=== PATIENT | female | born 1985 | race Caucasian/White ===

== ENCOUNTER 2022-07-21 07:26 | Inpatient (IN) | payer BC, SELFPAY ==
[2022-07-21] VITALS (39 sets, daily range): BP systolic 98–149; BP diastolic 55–106; PULSE 67–100; RESP 18; TEMP 36.5; O2SAT 86–100; BMI 34.8
[2022-07-21 05:37] LABS: Amphetamine Screen Urine Negative (Negative); Barbiturate Screen Urine Negative (Negative); Benzodiazepines Screen Urine Negative (Negative); Cannabinoid Screen Urine Negative (Negative); Cocaine Screen Urine Negative (Negative); Methadone Screen Urine Negative (Negative); Methamphetamines Screen Urine Negative (Negative); Opiate Screen Urine Negative (Negative); Oxycodone Screen Urine Negative (Negative); Phencyclidine Screen Urine Negative (Negative); Tricyclic Antidepressant Urine Negative (Negative)
[2022-07-21 06:35] LABS: Hematocrit 39.1 % (33.0-51.0); Hemoglobin* 13.5 gm/dL (12.0-16.0); Mean Corpuscular HGB Conc 35 gm/dL (32-36); Mean Corpuscular Hemoglobin 30 pg (26-34); Mean Corpuscular Volume 87 fL (80-100); Platelet Count* 257 K/uL (140-440); Red Blood Count 4.49 m/uL (4.00-5.20); White Blood Count* 14.23 K/uL (4.50-11.00)
[2022-07-21] MEDS: LACTATED RINGERS 1000 ML 1,000 ML IV ×2 (06:35→07:55)
[2022-07-21 06:42] LABS: Slide Review Reflex No
[2022-07-21 06:46] LABS: INR 0.87 (0.91-1.10); Prothrombin Time 12.3 Seconds
[2022-07-21 06:47] LABS: Fibrinogen* 537 mg/dL (200-450)
[2022-07-21 07:01] LABS: Aspartate Amino Transferase* 20 U/L (12-35); Creatinine* 0.5 mg/dL (0.5-1.5); Estimated Glomerular Filt Rate 125 ml/min
[2022-07-21 07:02] LABS: Magnesium* 1.8 mg/dL (1.5-2.6)
[2022-07-21 07:02] LABS: Alanine Aminotransferase* 17 U/L (4-35); Blood Urea Nitrogen* 9 mg/dL (5-24)
--- NOTE | 2022-07-21 07:31 | P.OBHP_ITS ---
OB - H&P: HPI Labor/Induction History of Present Illness Date Seen: 07/21/22 Chief Complaint: The patient is a 37 year old 5 para 211 at 36+6 weeks gestation by LMP and confirmed with first trimester US, who presents with painful regular contractions. is complicated by AMA. She has history of delivery with first baby. serial CL ultrasounds reassuring, so did not go on progesterone. Baby also known to have bilateral club feet. Chief complaint: Maternity : 5 Para: 3 Narrative: Peña Wick is a 37 year old at 36.6 weeks by LMP confirmed with first trimester US here with painful regular contractions. Contractions were mild starting last night at 9 pm, but overnight became more intense and frequent which prompted her to come in for evaluation. She quickly dilated from 3.5 to 5 cm while being observed and contractions are now Q2 minutes. She reports no LOF. complicated by AMA and history of delivery with first child, CL ultrasounds reassuring and therefore did not take progesterone. Infant is known to have bilateral club feet for which she has consulted with perinatology and peds ortho. History of Present Dating criteria: based on LMP care: good care Abnormal ultrasound findings: Bilteral club feet, appears to be an isolated finding Medical complications: none Labs Blood type: A (+) positive Rubella: immune RPR/VDLR: nonreactive GBS status: negative HBsAG: negative Review of Systems Status of ROS: Reports: 6 or more systems reviewed and unremarkable except as noted in History and below Meds Home Medications and Allergies Home Medications Medication Instructions Recorded Confirmed Type No Known Home Medications 07/21/22 07/21/22 History Allergies Allergy/AdvReac Type Severity Reaction Status Date / Time No Known Allergies Allergy Verified 07/21/22 06:49 OB - H&P: Exam Physical Exam: Vital signs: Temp Pulse Resp BP Pulse Ox 97.7 F 77 18 137/95 H 99 07/21/22 04:24 07/21/22 07:30 07/21/22 04:24 07/21/22 07:30 07/21/22 07:30 Constitutional: Constitutional: no acute distress Comments: uncomfortable with contractions Routine HEENT Exam: Head: Present atraumatic Eye: Present EOMI and PERRL ENT: Present mucous membranes moist Routine Neck Exam: Neck: Present full ROM Routine Respiratory Exam: Respiratory: Present CTA bilaterally Routine Cardiovascular Exam: Cardiovascular: RRR Detailed Labor and Delivery Exam: Patient Gravid: Yes Dilation (cm): 5 Effacement (%): 80 Cervix position: mid Consistency: soft Contraction frequency (min): 2 Contraction intensity: Strong/Firm Fetus (Single): Station: -2 Amniotic Membrane Status: intact Heart Rate Baseline: 150 Monitor Accelerations: Present Monitor Decelerations: None Custodial Variability: Moderate (6-25) Routine Back/Spine/Pelvis Exam: Back/Spine: full ROM Routine Skin Exam: Present intact Routine Neurological Exam: Present alert, oriented X3 and CN II-XII intact Routine Psychiatric Exam: Present normal affect OB - Results Labs Labs: Short CBC 07/21/22 Range/Units 06:00 WBC 14.23 H (4.50-11.00) K/uL Hgb 13.5 (12.0-16.0) gm/dL Hct 39.1 (33.0-51.0) % Plt Count 257 (140-440) K/uL BMP 07/21/22 06:00 BUN 9 Creatinine 0.5 Liver Function 07/21/22 Range/Units 06:00 AST 20 (12-35) U/L ALT 17 (4-35) U/L OB - Problem Based A/P Additional Plan (1) Term : Status: Acute Plan Patient requesting epidural for labor analgesia. WIll plan on AROM after she is comfortable. Anticipate . Delivery/Labor/Induction Plan Plan: expectant management
[2022-07-21] MEDS: ROPIVACAINE 0.2% 100 ml 100 ML 12 MG EPIDURAL (07:54)
[2022-07-21] MEDS: LIDOCAINE 2% (PF) 5 ML VIAL EPIDURAL (07:54)
[2022-07-21 07:55] LABS: SARS PCR* Negative SARS-CoV-2 (Negative)
--- NOTE | 2022-07-21 07:58 | P.ANBPRC_ITS ---
[facility] [place] Social History Smoking Status: Never smoker Meds Home Medications and Allergies Home Medications Medication Instructions Recorded Confirmed Type No Known Home Medications 07/21/22 07/21/22 History Allergies Allergy/AdvReac Type Severity Reaction Status Date / Time No Known Allergies Allergy Verified 07/21/22 06:49 Results Labs Labs: Laboratory Results - last 24 hr 07/21/22 07/21/22 07/21/22 05:05 06:00 06:00 WBC 14.23 H RBC 4.49 Hgb 13.5 Hct 39.1 MCV 87 MCH 30 MCHC 35 Plt Count 257 INR 0.87 L Fibrinogen 537 H BUN Creatinine Estimated GFR Magnesium AST ALT Urine Opiates Screen Negative Ur Oxycodone Screen Negative Urine Methadone Screen Negative Ur Propoxyphene Screen Negative Ur Barbiturates Screen Negative U Tricyclic Antidepress Negative Ur Phencyclidine Scrn Negative Ur Amphetamines Screen Negative U Methamphetamines Scrn Negative U Benzodiazepines Scrn Negative Urine Cocaine Screen Negative U Marijuana (THC) Screen Negative SARS-CoV-2 (PCR) 07/21/22 07/21/22 07/21/22 06:00 06:30 06:58 WBC RBC Hgb Hct MCV MCH MCHC Plt Count INR Fibrinogen BUN 9 Creatinine 0.5 Estimated GFR 125 Magnesium 1.8 AST 20 ALT 17 Urine Opiates Screen Ur Oxycodone Screen Urine Methadone Screen Ur Propoxyphene Screen Ur Barbiturates Screen U Tricyclic Antidepress Ur Phencyclidine Scrn Ur Amphetamines Screen U Methamphetamines Scrn U Benzodiazepines Scrn Urine Cocaine Screen U Marijuana (THC) Screen SARS-CoV-2 (PCR) Negative SARS-CoV-2 Vital Signs Vital Signs: Last Vital Signs Temp 97.7 F 07/21/22 04:24 Pulse 84 07/21/22 07:54 Resp 18 07/21/22 04:24 BP 138/85 07/21/22 07:54 Pulse Ox 100 07/21/22 07:45 Weight: 92.306 kg Anesthesia Procedures Epidural Insertion Patient Location: OB Start Time: 07:25 Stop Time: 08:00 Start Date: 07/21/22 Stop Date: 07/21/22 Reason for Block: procedure for pain Patient Position: sitting Performed By: Missael Benavidez Preanesthetic Checklist: IV checked, site marked, risks and benefits discussed, monitors and equipment checked, pre-op evaluation, timeout performed and anesthesia consent Prep: chlorhexidine gluconate Monitoring: blood pressure monitoring, continuous pulse oximetry and heart rate Approach: midline Vertebral Space: lumbar (1-5) Epidural Technique: SARAI saline Needle Type: Tuohy needle Injection Technique: continuous catheter Needle gauge: 17 Needle Length (cm): 10 cm Needle Insertion Depth (cm): 6 Catheter Gauge: 20 Catheter Type: multi-orifice Catheter at skin depth (cm): 11 Test Dose Result: negative
[2022-07-21] MEDS: OXYTOCIN 30 unit/500 ML in NS 30 UNIT/500 ML BAG 300 UNIT IVPB (08:37)
--- NOTE | 2022-07-21 09:48 | P.OBPRC_ITS ---
Procedure Procedure Done: Global Events: AMA Intrapartal Events: Distress and Excessive Bleeding (After AROM, suspect partial abruption) Delivery augmentation: rupture of membranes Delivery monitor: external FHT and internal FHT Route of delivery: vacuum extraction Indication for instrumentation: nonreassuring FHR tracing Episiotomy description: None Laceration description: None Estimated blood loss (mL): 110 Anesthesia type: Epidural Narrative: The patient is a 37 year-old admitted on 07/21/2022 at 36.6 Weeks gestation for active labor.? Cervical exam on admission was 3 cm/80 % effaced/-2 station with membranes intact in vertex presentation.? Contractions were every 2 minutes.? heart rate demonstrated baseline 150 bpm with moderate variability, + accelerations, - decelerations; a category 1 tracing.?She received an epidural for labor analgesia at 0745. AROM occurred at 0808 with clear fluid, she was 8 cm at geraldine time. However, she then had a moderate to heavy amount of bright red bleeding and clots. At this time, infant began to have persistent decelerations to 70-100. Cervix was a rim and then rapidly dilated to complete. 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 Peds provider was present for delivery. Mom was pushing effectively, but because of persistent FHTs in the 70s, a vacuum was placed during the last contraction prior to delivery, mom pushed twice with the vacuum and delivered. ? Labor Analgesia:? Epidural ? Pitocin:? after delivery of ? Labor onset:? 0400 ? Complete:? 0827 ? Pushing:? 0827 ? heart tones during second stage were category 2. ? At 0838 a viable male infant delivered in vertex OA presentation over intact perineum via spontaneous vaginal delivery.? Infant was placed on maternal abdomen.? Cord was clamped and cut after a 30-60 second delay.? Nose and mouth were bulb suctioned. At that time, was noted to have poor respiratory effort and was brought to the warmer for resuscitation. ? Infant weight 2995 g.? 6 at 1 minute and 7 at 5 minutes.? Shoulder dystocia: no.? Nuchal cord: no. ? Placenta delivered spontaneously and complete at 0847 with a 3 vessel cord. ? Mother and were stable after delivery. ? Lacerations:? n/a. ? Blood loss: 110 mL. Blood loss measurement type: QBL ? Sponge and needles counts are correct. [place] Infant Gender: Male presentation: vertex Placental Delivery Description: Spontaneous Cord Description: 3 Vessels total score - 1 minute: 6 total score - 5 minute: 7 total score - 10 minute: 7 [place] Infant A Gender: Male
[2022-07-21] MEDS: IBUPROFEN 600 MG TABLET PO (11:34)
--- NOTE | 2022-07-21 11:48 | P.DS_ITS ---
DS: Providers Provider Date Seen: 07/21/22 Date of admission: 07/21/22 07:26 Primary care physician: Luzma Dominique MD Admitting Clinician: Luzma Dominique MD Consults: 07/21/22 04:53 Consult to Inbound Customer Service Representative [CONS] Routine Comment: Reason for Consult:: Substance Abuse Screening Attending Physician on discharge: Luzma Dominique MD Date of Discharge: 07/21/22 DS: Diagnosis Discharge Diagnosis (1) Vaginal delivery: Status: Acute Exam Const: Vital Signs, click to edit/add: Vital Signs - 24 hr 07/21/22 04:24 07/21/22 04:22 07/21/22 05:08 Temperature 97.7 F Pulse Rate 77 88 Respiratory Rate 18 Blood Pressure 141/88 H 137/91 H Pulse Oximetry 07/21/22 05:28 07/21/22 07:25 07/21/22 07:28 Temperature Pulse Rate 81 84 Respiratory Rate Blood Pressure 140/92 H 139/93 H Pulse Oximetry 100 07/21/22 07:30 07/21/22 07:32 07/21/22 07:34 Temperature Pulse Rate 77 68 77 Respiratory Rate Blood Pressure 137/95 H 139/91 H 138/95 H Pulse Oximetry 99 07/21/22 07:35 07/21/22 07:38 07/21/22 07:40 Temperature Pulse Rate 81 83 Respiratory Rate Blood Pressure 136/96 H 149/106 H Pulse Oximetry 99 100 07/21/22 07:42 07/21/22 07:44 07/21/22 07:45 Temperature Pulse Rate 75 76 Respiratory Rate Blood Pressure 135/88 132/87 Pulse Oximetry 100 07/21/22 07:46 07/21/22 07:48 07/21/22 07:50 Temperature Pulse Rate 75 75 82 Respiratory Rate Blood Pressure 135/88 144/98 H 128/91 H Pulse Oximetry 07/21/22 07:52 07/21/22 07:54 07/21/22 07:58 Temperature Pulse Rate 80 84 89 Respiratory Rate Blood Pressure 134/86 138/85 136/84 Pulse Oximetry 07/21/22 08:01 07/21/22 08:06 07/21/22 08:12 Temperature Pulse Rate 86 100 67 Respiratory Rate Blood Pressure 134/88 133/72 98/57 L Pulse Oximetry 07/21/22 08:16 07/21/22 08:20 07/21/22 08:21 Temperature Pulse Rate 82 82 Respiratory Rate Blood Pressure 116/72 114/60 Pulse Oximetry 100 07/21/22 08:25 07/21/22 08:26 07/21/22 08:30 Temperature Pulse Rate Respiratory Rate Blood Pressure Pulse Oximetry 100 91 86 L 07/21/22 08:49 07/21/22 09:04 07/21/22 09:19 Temperature Pulse Rate 76 79 73 Respiratory Rate Blood Pressure 107/55 L 110/61 118/76 Pulse Oximetry 07/21/22 09:34 07/21/22 09:49 07/21/22 10:04 Temperature Pulse Rate 76 75 85 Respiratory Rate Blood Pressure 119/78 119/77 124/81 Pulse Oximetry 07/21/22 10:13 07/21/22 10:40 07/21/22 10:50 Temperature Pulse Rate 80 87 78 Respiratory Rate Blood Pressure 134/87 135/92 H 128/86 Pulse Oximetry Common normals: no apparent distress : Other: Uterus firm 2 cm below umbilicus. Extremity: Common normals: normal to inspection and no pedal edema OB - DS: Summary Hospital Course Hospital Course: The patient is a 37 year old G 5 P 3114 at 36.6 weeks gestation that was admitted to the Center on 07/21/22 for actve labor. She had a vaginal delivery complicated by suspected partial abruption and nonreassuring FHTs. She delivered a viable male infant via vacuum assisted delivery for nonreassuring FHTs. She is planning on breast feeding. the patient has done well. She will be discharged early due to being transferred to NICU Peripartum Data delivery method: Vaginal Laceration description: None Episiotomy description: None complications: none [place] Gender: Male Infant Discharge Plan: transfer NICU [place] A Infant Gender: Male Status at Discharge Functional status at discharge: independent ambulation Overall status at discharge: patient is progressing back to baseline Time Spent with Patient Time attestation: Total time spent providing and/or coordinating discharge services: Time spent: Less than 30 minutes Discharge Plan Discharge Disposition: Home, Self-Care Date of Admission: 07/21/22 07:26 Primary Care Provider: Luzma Dominique Condition: Stable Anticipated Discharge Date/Time: 07/21/22 11:53 Discharge Medications: No Action No Known Home Medications Discharge Orders: Discharge Order (Routine); Ordered 07/21/22 Ordered By: Luzma Dominique Patient Education: OB Vaginal/Breast Feeding Activity Level: No Restrictions Activity Detail: Pelvic rest (no intercourse or tampons) for 6 weeks Off work for 6 weeks Discharge Diet: Regular Follow Up Appointments: Luzma Dominique MD [Primary Care Provider] - Forms: [facility] Inst[facility] Discharge Comments: ok to discharge with baby if vitals stable and able to ambul ate independently
--- OUTSIDE RECORDS SUMMARY | 2023-11-30 08:59 | XMS_ITS | Clinical Summary ---
Author Organization [facility] Address [address] [place] [address] Care Team Providers Care Circle Shear Operator Name Role Phone Elsewhere, Pcp Primary Care Provider Unavailabl e Source Comments Patient records contain information from all sites at [facility]. For routine questions regarding patient records, call [phone] during business hours, M-F 8:00 AM - 5:00 PM Central Time. Record requests for emergency care only can be directed to [phone] at any time.[facility] Allergies No known active allergies Medications Medication [...] your living situation today? I have a [facility] place to live 03/09/2023 Sex and Gender [...] history exists Medical Devices Implanted Type Area Machine Heel Seat Laster Device Identifier Shelf Expiration Date Model / Serial / Lot Stnt Uret Inl 7fx26 - [id number] Implanted:Qty : 1 on 02/20/2023 by Nancy Clemons M.D. at [facility] Ureteral Stent Left: Ureter C.R.Bard [id number] 05/26/2026 [id number] / / [id number] Stnt Uret Inl 7fx26 - [id number] Implanted:Qty : 1 on 03/20/2023 by Basia Jerome M.D. at [facility] Ureteral Stent Left: Ureter C.R.Bard [id number] 05/26/2026 [id number] / / [id number] Explanted Type Area Machine Heel Seat Laster Device Identifier Shelf Expiration Date Model / Serial / Lot Stnt Uret Inl 7fx26 - [id number] Implanted:Qty : 1 on 02/06/2023 by Tawanda Delaney M.D. at [facility] Explanted:Qty : 1 on 02/20/2023 by Marylou Santana M.D. at [facility] Ureteral Stent Left: Ureter C.R.Bard [id number] 05/26/2026 [id number] / / [id number] Stnt Uret Inl 7fx26 - [id number] Explanted:Qty : 1 on 02/20/2023 by Nancy Clemons M.D. at [facility] Ureteral Stent Left: Ureter C.R.Bard [id number] 05/26/2026 [id number] / / [id number] Stnt Uret Inl 7fx28 - [id number] Implanted:Qty : 1 on 01/05/2023 by Juanita Mckeon M.D. at [facility] Explanted:Qty : 1 on 03/20/[address] [facility] Ureteral Stent C.R.Bard [id number] 05/26/2026 [id number] / / [id number] Care Teams Circle Shear Operator Relationship Specialty Start Date End Date Elsewhere, Pcp PCP - General 12/01/21
--- OUTSIDE RECORDS SUMMARY | 2023-11-30 08:59 | XMS_ITS | Referral Summary ---
Author Organization [facility] Address [address] [place] [address] Care Team Providers Care Sewer System Supervisor Name Role Phone Elsewhere, Pcp Primary Care Provider Unavailabl e Source Comments Patient records contain information from all sites at [facility]. For routine questions regarding patient records, call [phone] during business hours, M-F 8:00 AM - 5:00 PM Central Time. Record requests for emergency care only can be directed to [phone] at any time.[facility] Allergies No known active allergies Medications [...] your living situation today? I have a [facility] place to live 03/09/2023 Sex and Gender [...] on file Medical Devices Implanted Type Area Analytics Analyst Device Identifier Shelf Expiration Date Model / Serial / Lot Stnt Uret Inl 7fx26 - [id number] Implanted:Qty : 1 on 02/20/2023 by Nancy Clemons M.D. at [facility] Ureteral Stent Left: Ureter C.R.Bard [id number] 05/26/2026 [id number] / / [id number] Stnt Uret Inl 7fx26 - [id number] Implanted:Qty : 1 on 03/20/2023 by Basia Jerome M.D. at [facility] Ureteral Stent Left: Ureter C.R.Bard [id number] 05/26/2026 [id number] / / [id number] Explanted Type Area Analytics Analyst Device Identifier Shelf Expiration Date Model / Serial / Lot Stnt Uret Inl 7fx26 - [id number] Implanted:Qty : 1 on 02/06/2023 by Tawanda Delaney M.D. at [facility] Explanted:Qty : 1 on 02/20/2023 by Marylou Santana M.D. at [facility] Ureteral Stent Left: Ureter C.R.Bard [id number] 05/26/2026 [id number] / / [id number] Stnt Uret Inl 7fx26 - [id number] Explanted:Qty : 1 on 02/20/2023 by Nancy Clemons M.D. at [facility] Ureteral Stent Left: Ureter C.R.Bard [id number] 05/26/2026 [id number] / / [id number] Stnt Uret Inl 7fx28 - [id number] Implanted:Qty : 1 on 01/05/2023 by Juanita Mckeon M.D. at [facility] Explanted:Qty : 1 on 03/20/2023 at [facility] Ureteral Stent C.R.Bard [id number] 05/26/2026 [id number] / / [id number] Care Teams Sewer System Supervisor Relationship Specialty Start Date End Date Elsewhere, Pcp PCP - General 12/01/21
--- OUTSIDE RECORDS SUMMARY | 2023-11-30 08:59 | XMS_ITS ---
Author Organization [facility] Address [address] [place] [address] Care Team Providers Care Supervisor Publications Name Role Phone Unavailable Unavailable Unavailable Surgery Details Not on file Complications Check Surgery Details section. Procedure Estimated Blood Loss Check Surgery Details section. Procedure Findings Check Surgery Details section. Procedure Specimens Taken Check Surgery Details section.
== END 2022-07-21 13:25 | disposition home or self-care (01) | DRG 560 ==
LOC: OB OUT 07:26 → OB 11:53
PROVIDERS: Admitting Provider Family Medicine; PCP Family Medicine; Visit Provider Family Medicine
DX: O76 Abnormality in fetal heart rate and rhythm complicating labor and delivery (principal); Z3A.36 36 weeks gestation of pregnancy; Z37.0 Single live birth
CPT/HCPCS: 01967; 36415; 80306; 82565; 83735; 84450; 84460; 84520; 85027; 85384; 85610; 87635; 88307; 99213; G0463; A9270; J2795; J7120

== ENCOUNTER 2023-11-13 05:59 | Emergency (ER) | payer BC, SELFPAY ==
[2023-11-13 06:06] VITALS: BP 140/101; PULSE 97; RESP 16; TEMP 36.6; O2SAT 96; BMI 27.5
[2023-11-13 06:18] LABS: Appearance Urine Cloudy (Clear); Bilirubin Urine Negative (Negative); Blood Urine Trace-intact (Negative); Color Urine Yellow (Yellow); Glucose Urine Negative (Negative); Ketones Urine Negative (Negative); Leukocyte Esterase Urine 3+ (Negative); Nitrite Urine Positive (Negative); Protein Urine 2+ (Negative); Specific Gravity Urine 1.025 (1.000-1.030); Urobilinogen Urine 0.2 (0.2-1.0)
--- NOTE | 2023-11-13 06:21 | ED.GENADULT ---
HPI - General Adult General Time Seen by Provider: 06:21 Date Seen: 11/13/23 Chief complaint: Flank Pain Stated complaint: pain on right flank area Time Seen by Provider: 11/13/23 06:16 Source: patient, RN notes reviewed and old records reviewed Mode of arrival: ambulatory Limitations: no limitations History of Present Illness HPI narrative: 38-year-old female who comes in today with right flank pain starting about 2 hours prior to coming the emergency department, also some nausea and vomiting. Patient has history of kidney stones and gallstones. She reports waking up a couple hours ago with right flank pain that occasionally goes into the epigastrium and feels like heartburn, nausea, vomiting, pain waxes and wanes, no relieving or exacerbating factors. Did take ibuprofen. Does not feel like her kidney stone pain which is on the left. She is scheduled to have what sounds like lithotripsy for known nephrolithiasis on the left. Related Data Previous Rx's Medication Instructions Recorded cefdinir 300 mg capsule 300 mg PO BID 10 days #20 caps 11/13/23 ondansetron 4 mg disintegrating 4 mg PO Q6H PRN nausea and 11/13/23 tablet vomiting #20 tabs oxycodone 5 mg capsule 5 mg PO Q6H PRN pain #10 caps 11/13/23 Allergies Allergy/AdvReac Type Severity Reaction Status Date / Time No Known Allergies Allergy Verified 07/21/22 06:49 [facility] Medical History (Updated 11/13/23 @ 06:57 by Jason Peacock MD) Vaginal delivery ?O80 - Encounter for full-term uncomplicated delivery (ICD-10) Social History Smoking Status: Never smoker Second hand tobacco smoke exposure: No How often do you have a drink containing alcohol: never AUDIT-C Alcohol total score: 0 Non-prescribed substance use: denies use Exam Narrative: Exam Narrative: General: Well-developed and well-nourished, no acute distress Head: Atraumatic and normocephalic Eyes: Pupils are equal reactive, extraocular motions intact, conjunctiva clear ENT: External nose and ears are normal, posterior pharynx without erythema or exudate Neck: No midline cervical tenderness, full spontaneous range of motion the neck, trachea midline, no adenopathy Heart: Regular rate and rhythm no murmurs or thrills Lungs: Clear to auscultation bilaterally without wheezes or crackles Abdomen: Right CVA tenderness to percussion, no epigastric or right upper quadrant, Musculoskeletal: No tenderness, deformity, or edema Neurologic: Awake, alert, and oriented x3, no gross focal neurologic deficits, cranial nerves intact as tested Psych: Mood and affect are appropriate Skin: No rashes Const: Vital Signs, click to edit/add: Vital Signs - 24 hr 11/13/23 06:06 Temperature 97.9 F Pulse Rate [Pulse Oximeter] 97 Respiratory Rate 16 Blood Pressure [Ri ght Upper Arm] 140/101 H Pulse Oximetry 96 Oxygen Delivery Me thod Room Air Course Course ED Course: Patient seen examined, prior records reviewed. Patient presents today with right flank pain in some epigastric pain as well, history of kidney stones but always on the left, history of gallstones but no prior surgery for this. On exam here, appears uncomfortable, right CVA tenderness, no right upper quadrant or epigastric tenderness. Clinically symptoms seem most consistent with kidney stones although biliary colic or acute cholecystitis cannot be completely excluded. Labs are ordered along with CT scan of the abdomen and pelvis to evaluate for ureteral stone, if this is negative consider right upper quadrant ultrasound to evaluate for acute cholecystitis Reevaluation(s) Time of Reevaluation #1: 06:54 Reevaluation #1: CT ordered independently interpreted by me demonstrates some stones in the left kidney, no right-sided hydronephrosis or hydroureter, no perinephric stranding on the right, gallbladder with some small stones but no dilation or inflammatory changes on this noncontrast study, there is a small area of hyperintensity in the right renal parenchyma which could be related to calcification but also concern for hemorrhage. Urinalysis ordered and independently interpreted by me with trace blood, nitrite positive, white blood cells 50-100 consistent with infection. Rocephin IV is ordered. Time of Reevaluation #2: 07:12 Reevaluation #2: Labs ordered and independently interpreted by me with normal CBC. Patient is stable for discharge. Vital Signs Vital signs: Initial Vital Signs Temperature 97.9 F 11/13/23 06:06 Temperature Source Temporal Artery Scan 11/13/23 06:06 Pulse Rate 97 11/13/23 06:06 Respiratory Rate 16 11/13/23 06:06 Blood Pressure 140/101 H 11/13/23 06:06 Blood Pressure Mean 114 H 11/13/23 06:06 Blood Pressure Position Sitting 11/13/23 06:06 Pulse Oximetry 96 11/13/23 06:06 Oxygen Delivery Method Room Air 11/13/23 06:06 Vital Signs Temperature 97.9 F 11/13/23 06:06 Pulse Rate 97 11/13/23 06:06 Respiratory Rate 16 11/13/23 06:06 Blood Pressure 140/101 H 11/13/23 06:06 Pulse Oximetry 96 11/13/23 06:06 Oxygen Delivery Method Room Air 11/13/23 06:06 Temperature 97.9 F 11/13/23 06:06 Pulse Rate 97 11/13/23 06:06 Respiratory Rate 16 11/13/23 06:06 Blood Pressure 140/101 H 11/13/23 06:06 Pulse Oximetry 96 11/13/23 06:06 Oxygen Delivery Method Room Air 11/13/23 06:06 Medications Administered Medications: Discontinued Medications Generic Name Dose Route Start Last Admin Trade Name Freq PRN Reason Stop Dose Admin Ketorolac Tromethamine 15 mg 11/13/23 06:29 11/13/23 06:55 Ketorolac 15 Mg/Ml Inj IVP 11/13/23 06:30 15 mg ONCE ONE Administration Ondansetron HCl 4 mg 11/13/23 06:29 11/13/23 06:55 Ondansetron 2 Mg/Ml Inj IVP 11/13/23 06:30 4 mg ONCE ONE Administration Medical Decision Making Lab Data Labs: Lab Results 11/13/23 11/13/23 Range/Units 06:10 06:45 WBC 7.33 (4.50-11.00) K/uL RBC 4.65 (4.00-5.20) m/uL Hgb 14.1 (12.0-16.0) gm/dL Hct 41.5 (33.0-51.0) % MCV 89 (80-100) fL MCH 30 (26-34) pg MCHC 34 (32-36) gm/dL RDW Coeff of Patrica 12.4 (11.5-15.5) % Plt Count 278 (140-440) K/uL Neut % (Auto) 64.2 (42.0-72.0) % Lymph % (Auto) 27.6 (20-44) % [place] % (Auto) 5.7 (0.0-11.0) % Eos % (Auto) 1.5 (0.0-7.0) % Baso % (Auto) 0.7 (0.0-3.0) % Neut # (Auto) 4.71 (1.7-7.0) K/uL Lymph # (Auto) 2.02 (0.90-2.90) K/uL [place] # (Auto) 0.40 (0.00-0.90) K/UL Eos # (Auto) 0.11 (0.00-0.50) K/uL Baso # (Auto) 0.05 (0.00-0.30) K/uL Abs Immat Gran (auto) 0.02 (0.00-0.30) K/uL Imm/Tot Granulo (auto) 0.3 % Sodium 138 (135-149) mmol/L Potassium 4.1 (3.6-5.1) mmol/L Chloride 108 (96-114) mmol/L Carbon Dioxide 25 (20-32) mmol/L Anion Gap 5 L (7-15) mEq/L BUN 16 (5-24) mg/dL Creatinine 0.7 (0.5-1.5) mg/dL Estimated Creat Clear 95.02 Estimated GFR 114 ml/min Glucose 88 (60-115) mg/dL Calcium 8.7 (8.4-10.6) mg/dL Urine Color Yellow (Yellow) Urine Appearance Cloudy A (Clear) Urine pH 6.0 (5.0-8.5) Ur Specific [place] 1.025 (1.000-1.030) Urine Protein 2+ A (Negative) Urine Glucose (UA) Negative (Negative) Urine Ketones Negative (Negative) Urine Blood Trace-intact A (Negative) Urine Nitrite Positive A (Negative) Urine Bilirubin Negative (Negative) Urine Urobilinogen 0.2 (0.2-1.0) Ur Leukocyte Esterase 3+ A (Negative) Urine RBC 2-5 A (0-2) Urine WBC 50-100 A (0-5) Ur Squamous Epith Cells Moderate A (None-Few) Urine Bacteria Many A (None) Discharge Plan Discharge Clinical Impression: Pyelonephritis Patient Disposition: Home w/ Parent or Adult Condition: Stable Instructions: Kidney Infection (ED) Additional Instructions: Take antibiotics as prescribed starting tonight Activity Level: Activity as Tolerated Discharge Diet: Regular Prescriptions: New ondansetron 4 mg tablet,disintegrating 4 mg PO Q6H PRN (Reason: nausea and vomiting) Qty: 20 0RF cefdinir 300 mg capsule 300 mg PO BID 10 Days Qty: 20 0RF oxycodone 5 mg capsule 5 mg PO Q6H PRN (Reason: pain) Qty: 10 0RF Follow Up/Referrals: Luzma Dominique MD [Primary Care Provider] - Stand Alone Forms: [employer] Info Instructions
--- NOTE | 2023-11-13 06:29 | CT_ITS ---
Patient: LARA HUIZAR Facility:?[facility] Patient ID:?[id number] Site Patient ID:?[id number]. Site :?[id number] Study:?CT-Abdomen/Pelvis W/O-11/13/2023 6:53:03 AM Ordering Physician:SEBAS Final Report: INDICATION: Right flank pain TECHNIQUE: Axial images were obtained from the diaphragm to the pubic symphysis. Reformats were obtained in the coronal and sagittal plane. IV Contrast: None Oral Contrast: None COMPARISON: None. FINDINGS: Lower chest: Minimal discoid atelectasis right middle lobe. Liver: Normal in contour with 8 millimeter cyst within the caudate lobe. Gallbladder and bile ducts: Cholelithiasis without pericholecystic inflammation. Spleen: Unremarkable. Normal in size without mass. Pancreas: Unremarkable. No mass or inflammation. Adrenal glands: Unremarkable. No nodules. Kidneys: Nephrolithiasis. On the right there is no evidence of hydronephrosis or ureteral stone. On the left there are multiple low-density suggesting pelvocaliectasis with numerous nonobstructing stones. Minimal left hydronephrosis with two 1 millimeter stones at the level of the proximal ureter (series 2, image 62; series 4, image 74). Mild left renal scarring. Vasculature: No evidence of abdominal aortic aneurysm. Increased number of subcentimeter retroperitoneal lymph nodes. GI tract: The stomach is unremarkable. No dilated loops of large or small intestine. Normal appendix. Pelvis: Right ovarian cystic lesion measuring 3.2 centimeters. No free fluid seen. Bones: Unremarkable for age. IMPRESSION: 1. Nephrolithiasis with mild left hydronephrosis, some left renal scarring and two 1 millimeter proximal left ureteral stones. 2. Right ovarian cyst measuring 3.2 centimeters. 3. Cholelithiasis without CT evidence of cholecystitis. 4. Nonspecific mildly increased number of retroperitoneal lymph nodes, greatest at the left renal level. Please note that all CT scans at this facility use dose modulation, iterative reconstruction, and/or weight-based dosing when appropriate to reduce radiation dose to as low as reasonably achievable. Dictated by Simone Demarco MD @ 11/13/2023 7:11:28 AM Signed by:?Simone Demarco MD @11/13/2023 7:11:28 AM (Electronic Signature)
[2023-11-13 06:41] LABS: Squamous Epithelial Cell Urine Moderate (None-Few); WBC Urine 50-100 (0-5)
[2023-11-13 06:42] LABS: Bacteria Urine Many
[2023-11-13] MEDS: ONDANSETRON 2 MG/ML inj 4 MG IVP (06:55)
[2023-11-13] MEDS: KETOROLAC 15 MG/ML inj IVP (06:55)
--- OUTSIDE RECORDS SUMMARY | 2023-11-13 06:56 | XMS_ITS | Referral Summary ---
Author Name Unknown Organization [facility] Address [address] [place] [address] Care Team Providers Care Trolley Coach Driver Name Role Phone Elsewhere, Pcp Primary Care Provider Unavailabl e Source Comments Patient records contain information from all sites at [facility]. For routine questions regarding patient records, call [phone] during business hours, M-F 8:00 AM - 5:00 PM Central Time. Record requests for emergency care only can be directed to [phone] at any time.[facility] Allergies No known active allergies Medications Medication Sig Dispensed Refills Start Date End Date Status polyethylene glycol (MIRALAX) 17 gram powder packet Take 1 packet (17 g total) by mouth daily as needed for constipation (while using oxybutynin/ditropan ). Dissolve each 17 g dose in 240 mLs (8 ounces) of beverage. 28 packet 01/07/2023 Active acetaminophen (TYLENOL) 500 mg tablet Take 2 tablets (1,000 mg total) by mouth every 6 (six) hours as needed for pain. 01/07/2023 Active sennosides-docusat e sodium (SENOKOT-S) 8.6-50 mg per tablet Take 1 tablet by mouth 2 (two) times a day as needed for constipation. 01/07/2023 Active oxyBUTYnin (DITROPAN-XL) 10 mg 24 hr tablet Take 1 tablet (10 mg total) by mouth at bedtime. 30 tablet 02/07/2023 Active tamsulosin (FLOMAX) 0.4 mg 24 hr capsule Take 1 capsule (0.4 mg total) by mouth daily as needed (stent discomfort). 30 capsule 02/07/2023 Active oxyBUTYnin (DITROPAN) 5 mg tablet Take 1 tablet (5 mg total) by mouth 3 (three) times a day as needed (bladder spasms). 90 tablet 03/09/2023 Active phenazopyridine (PYRIDIUM) 95 mg tablet Take 1 tablet (95 mg total) by mouth 3 (three) times a day as needed for painful urination. 30 tablet 03/20/2023 Active sennosides (SENOKOT) 8.6 mg tablet Take 1 tablet (8.6 mg total) by mouth at bedtime as needed for constipation. 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 Not hard at all 03/09/2023 Exercise Vital Sign Answer Date Recorde d On average, how many days pe r week do you engage in moderate to strenuous exercise (like a brisk walk)? 3 days 03/09/2023 On average, how many minutes do you engage in exercise at this level? 40 min 03/09/2023 Hunger Vital Sign Answer Date Recorded Within the past 12 months, y ou worried that your food would run out before you got the money to buy more. Never true 03/09/20 Within the past 12 months, t he food you bought just didn't last and you didn't have money to get more. Never true 03/09/2023 Nutrition Answer Date Recorded Nutrition: EVOO Fat Source Unknown 03/09 On average, how many serving s of fruits and vegetables do you eat per day (serving size is equal to 1 cup or approximately the size of a tennis ball)? 3-5 03/09/2023 Dental Answer Date Recorded Dental: Regular Dentist Yes 03/09/20 Employment Answer Date Recorded Employment status Employed but not working due t o illness or injury 03/09/2023 Housing Stability Answer Date Recorded What is your living situation today? I have a [facility] place to live 03/09/2023 Sex and Gender Information Value Date Recorded Sex Assigned at Female 03/09/2023 8:06 AM CDT Gender Identity Not on file Sexual Orientation Straight 03/09/2023 8: 06 AM CDT Last Filed Vital Signs Vital Sign Reading Time Taken Comments Blood Pressure 122/82 03/20/2023 12:45 PM CDT Pulse 79 03/20/2023 12:45 PM CDT Temperature 36.8 ??C (98.2 ??F) 03/20/2023 11:55 AM C DT Respiratory Rate 17 03/20/2023 12:45 PM CDT Oxygen Saturation 95% 03/20/2023 12:45 PM CDT Inhaled Oxygen Concentration - - Weight 80.8 kg (178 lb 2.1 oz) 03/20/2023 8:50 A M CDT Height 160 cm (5' 2.99) 03/20/2023 8:50 AM CDT Body Mass Index 31.56 03/20/2023 8:50 AM CDT Plan of Treatment Not on file Medical Devices Implanted Type Area Overhead Crane Truck Loader Device Identifier Shelf Expiration Date Model / Serial / Lot Stnt Uret Inl 7fx26 - [id number] Implanted:Qty : 1 on 02/20/2023 by Nancy Clemons M.D. at [facility] Ureteral Stent Left: Ureter C.R.Bard [id number] 05/26/2026 [id number] / / [id number] Stnt Uret Inl 7fx26 - [id number] Implanted:Qty : 1 on 03/20/2023 by Basia Jerome M.D. at [facility] Ureteral Stent Left: Ureter C.R.Bard [id number] 05/26/2026 [id number] / / [id number] Explanted Type Area Overhead Crane Truck Loader Device Identifier Shelf Expiration Date Model / Serial / Lot Stnt Uret Inl 7fx26 - [id number] Implanted:Qty : 1 on 02/06/2023 by Tawanda Delaney M.D. at [facility] Explanted:Qty : 1 on 02/20/2023 by Marylou Santana M.D. at [facility] Ureteral Stent Left: Ureter C.R.Bard [id number] 05/26/2026 [id number] / / [id number] Stnt Uret Inl 7fx26 - [id number] Explanted:Qty : 1 on 02/20/2023 by Nancy Clemons M.D. at [facility] Ureteral Stent Left: Ureter C.R.Bard [id number] 05/26/2026 [id number] / / [id number] Stnt Uret Inl 7fx28 - [id number] Implanted:Qty : 1 on 01/05/2023 by Juanita Mckeon M.D. at [facility] Explanted:Qty : 1 on 03/20/2023 at [facility] Ureteral Stent C.R.Bard [id number] 05/26/2026 [id number] / / [id number] Care Teams Trolley Coach Driver Relationship Specialty Start Date End Date Elsewhere, Pcp PCP - General 12/01/21
--- OUTSIDE RECORDS SUMMARY | 2023-11-13 06:56 | XMS_ITS ---
Author Name Unknown Organization [facility] Address [address] [place] [address] Care Team Providers Care Revenue Coordinator Name Role Phone Unavailable Unavailable Unavailable Surgery Details Not on file Complications Check Surgery Details section. Procedure Estimated Blood Loss Check Surgery Details section. Procedure Findings Check Surgery Details section. Procedure Specimens Taken Check Surgery Details section.
--- OUTSIDE RECORDS SUMMARY | 2023-11-13 06:56 | XMS_ITS | Clinical Summary ---
Author Name Unknown Organization [facility] Address [address] [place] [address] Care Team Providers Care Manager Zone Name Role Phone Elsewhere, Pcp Primary Care Provider Unavailabl e Source Comments Patient records contain information from all sites at [facility]. For routine questions regarding patient records, call [phone] during business hours, M-F 8:00 AM - 5:00 PM Central Time. Record requests for emergency care only can be directed to [phone] at any time.[facility] Allergies No known active allergies Medications Medication [...] your living situation today? I have a [facility] place to live 03/09/2023 Sex and Gender [...] 03/20/2023 8:50 AM CDT Plan of Treatment Health Maintenance Due Date Last Done Comments Cervical Cancer Screening 1986 HIV Screening 1986 Hepatitis C Screening 1986 Lipid (Cholesterol) Screening 1986 Tobacco Cessation counseling 1986 Pneumococcal vaccine (0-64 y ears) (1 of 2 - PCV) 1992 Hepatitis B Vaccines (1 of 3 - 19+ 3-dose series) 2005 HPV Vaccines (2 - 3-dose series) 10/23/2007 09/25/19 08 COVID-19 Vaccine (2 - 2022-2 4 season) 2023 11/20/2020 Depression Screening (Annual PHQ-2) 07/03/2023 DTaP,Tdap,and Td Vaccines (6 - Td or Tdap) 06/01/2032 06/01/2022, 12/24/2019, 06/27/2014, Additional history exists Influenza Vaccine Completed 07/17/2023, , 07/16/2019, Additional history exists Medical Devices Implanted Type Area Supervisor Salvage Device Identifier Shelf Expiration Date Model / Serial / Lot Stnt Uret Inl 7fx26 - [id number] Implanted:Qty : 1 on 02/20/2023 by Nancy Clemons M.D. at [facility] Ureteral Stent Left: Ureter C.R.Bard [id number] 05/26/2026 [id number] / / [id number] Stnt Uret Inl 7fx26 - [id number] Implanted:Qty : 1 on 03/20/2023 by Basia Jerome M.D. at [facility] Ureteral Stent Left: Ureter C.R.Bard [id number] 05/26/2026 [id number] / / [id number] Explanted Type Area Supervisor Salvage Device Identifier Shelf Expiration Date Model / Serial / Lot Stnt Uret Inl 7fx26 - [id number] Implanted:Qty : 1 on 02/06/2023 by Tawanda Delaney M.D. at [facility] Explanted:Qty : 1 on 02/20/2023 by Marylou Santana M.D. at [facility] Ureteral Stent Left: Ureter C.R.Bard [id number] 05/26/2026 [id number] / / [id number] Stnt Uret Inl 7fx26 - [id number] Explanted:Qty : 1 on 02/20/2023 by Nancy Clemons M.D. at [facility] Ureteral Stent Left: Ureter C.R.Bard [id number] 05/26/2026 [id number] / / [id number] Stnt Uret Inl 7fx28 - [id number] Implanted:Qty : 1 on 01/05/2023 by Juanita Mckeon M.D. at [facility] Explanted:Qty : 1 on 03/20/2023 at [facility] Ureteral Stent C.R.Bard [id number] 05/26/2026 [id number] / / [id number] Care Teams Manager Zone Relationship Specialty Start Date End Date Elsewhere, Pcp PCP - General 12/01/21
[2023-11-13 07:05] LABS: Basophils Absolute Auto 0.05 K/uL (0.00-0.30); Basophils Percent Auto 0.7 % (0.0-3.0); Eosinophils Absolute Auto 0.11 K/uL (0.00-0.50); Eosinophils Percent Auto 1.5 % (0.0-7.0); Hematocrit 41.5 % (33.0-51.0); Hemoglobin* 14.1 gm/dL (12.0-16.0); Immature Granulocytes Abs Auto 0.02 K/uL (0.00-0.30); Immature Granulocytes Pct Auto 0.3 %; Lymphocytes Absolute Auto 2.02 K/uL (0.90-2.90); Lymphocytes Percent Auto 27.6 % (20-44); Mean Corpuscular HGB Conc 34 gm/dL (32-36); Mean Corpuscular Hemoglobin 30 pg (26-34); Mean Corpuscular Volume 89 fL (80-100); Monocytes Percent Auto 5.7 % (0.0-11.0); Neutrophils Absolute Auto 4.71 K/uL (1.7-7.0); Neutrophils Percent Auto 64.2 % (42.0-72.0); Platelet Count* 278 K/uL (140-440); RDW Coefficient of Variation % 12.4 % (11.5-15.5); Red Blood Count 4.65 m/uL (4.00-5.20); White Blood Count* 7.33 K/uL (4.50-11.00)
[2023-11-13 07:08] LABS: Slide Review Reflex No
[2023-11-13 07:17] LABS: Chloride* 108 mmol/L (96-114); Potassium* 4.1 mmol/L (3.6-5.1); Sodium* 138 mmol/L (135-149)
[2023-11-13 07:20] LABS: Anion Gap 5 mEq/L (7-15); Blood Urea Nitrogen* 16 mg/dL (5-24); Calcium* 8.7 mg/dL (8.4-10.6); Carbon Dioxide* 25 mmol/L (20-32); Creatinine* 0.7 mg/dL (0.5-1.5); Est. Creatinine Clearance* 95.02; Estimated Glomerular Filt Rate 114 ml/min; Glucose* 88 mg/dL (60-115)
== END 2023-11-13 08:02 | disposition home or self-care (01) ==
PROVIDERS: Emergency Provider Family Medicine; PCP Family Medicine
DX: N10 Acute pyelonephritis (principal)
CPT/HCPCS: 36415; 74176; 80048; 81001; 85025; 87086; 87186; 96374; 96375; 99284; J1885; J2405